=== PATIENT | male | born 1990 | race African-American/Black ===

== ENCOUNTER 2021-11-07 12:27 | Emergency (ER) | payer BC, OTHER ==
[~2021-11-07] VITALS: Ht 180.3 cm; Wt 82.0 kg
[2021-11-07 13:01] VITALS: BP 149/87
[2021-11-07] MEDS ORDERED: LIDOCAINE HCL/PF 1% 10 MG/ML 5ML VIAL INFIL ONE (13:30)
[2021-11-07] MEDS ORDERED: TETANUS, DIPHTHERIA, PERTUSSIS VAC/PF 0.5ML (>10YR OLD) IM ONE (13:30)
[2021-11-07] MEDS ORDERED: BACITRACIN ZINC OINT UDPKT TOP ONE (13:30)
[2021-11-07] MEDS ORDERED: BO1 TP (15:22)
== END 2021-11-07 15:37 | disposition home or self-care (01) ==
LOC: ER 12:27
DX: S61.215A Laceration without foreign body of left ring finger without damage to nail, initial encounter (principal); W18.39XA Other fall on same level, initial encounter; Y93.89 Activity, other specified; Y92.89 Other specified places as the place of occurrence of the external cause; Y99.8 Other external cause status
CPT/HCPCS: 73130; 90471; 90715; 99283; J3490